=== PATIENT | female | born 1995 | race Caucasian/White ===

== ENCOUNTER 2023-06-12 10:18 | Emergency (ER) | payer SELFPAY ==
[2023-06-12 10:31] VITALS: BP 122/67; PULSE 72; RESP 16; TEMP 36.7; O2SAT 100
--- NOTE | 2023-06-12 10:51 | ED.SKABFB ---
HPI - Skin/Abscess/Foreign Bdy General Chief complaint: Skin/Abscess/Foreign Body Stated complaint: Rash Time Seen by Provider: 06/12/23 10:51 Source: patient Mode of arrival: ambulatory Limitations: no limitations History of Present Illness HPI narrative: 27-year-old female presents with complaint of itchy bug bites for 4-5 days. 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 Started to left upper arm now has them to right-sided back, lower abdomen, neck. States wakes up with new bites daily. Has not tried any [id number] medications to treat symptoms. All systems reviewed and negative except as noted above. Related Data Allergies Allergy/AdvReac Type Severity Reaction Status Date / Time No Known Allergies Allergy Verified 06/12/23 10:41 Review of Systems Review of Systems: CONSTITUTIONAL: Denies fever, chills, or sweats. EYES: Denies visual changes, redness, or discharge. ENT: Denies rhinorrhea, congestion, sore throat, or otalgia. CARDIOVASCULAR: Denies chest pain, palpitations, or edema. RESPIRATORY: Denies cough or dyspnea. GASTROINTESTINAL: Denies abdominal pain, nausea, vomiting, or diarrhea. GENITOURINARY: Denies dysuria or hematuria. SKIN: Reports itchy bug bites. MUSCULOSKELETAL: Denies back pain, joint pain, or myalgia. NEUROLOGIC: Denies headache, numbness, or weakness. PSYCHIATRIC: Denies anxiety or depression. All other systems reviewed are negative, except as documented in HPI. PMFSH Comments At time of signature, agree with nursing past medical, surgical, social and family history. There is no relevant family history pertinent to the presenting complaint. Exam Narrative: GENERAL: This is a well-nourished, well-developed patient, in no apparent distress. HEAD: normocephalic, atraumatic. EYES: PERRL. Sclera clear/white. Vision is grossly intact. EARS: External ears normal NOSE: External nose normal NECK: Neck supple, non-tender without lymphadenopathy, masses or thyromegaly. CARDIOVASCULAR: Regular rate and rhythm without murmurs, gallops, or rubs. RESPIRATORY: Clear to auscultation. Breath sounds equal bilaterally. No wheezes, rales, or rhonchi. SKIN: warm, Dry, intact , good texture and turgor. clusters of erythematous raised papules to left upper arm, right low back, left lower abdomen and to anterior neck. NEURO: awake, alert, and oriented to person, place and time. There were no obvious focal neurologic abnormalities. EXTREMITIES: No joint tenderness, effusion, or edema noted. Course Course Level of Care: Express Care Visit Vital Signs Vital signs: Vital Signs Temperature 36.7 C 06/12/23 10:31 Pulse Rate 72 06/12/23 10:31 Respiratory Rate 16 06/12/23 10:31 Blood Pressure 122/67 06/12/23 10:31 Pulse Oximetry 100 06/12/23 10:31 Oxygen Delivery Room Air 06/12/23 10:31 Temperature 36.7 C 06/12/23 10:31 Pulse Rate 72 06/12/23 10:31 Respiratory Rate 16 06/12/23 10:31 Blood Pressure 122/67 06/12/23 10:31 Pulse Oximetry 100 06/12/23 10:31 Oxygen Delivery Room Air 06/12/23 10:31 Reviewed MDM - Skin/Abscess/Foreign Bdy MDM Narrative Medical decision making narrative: insect bites concerning for bedbugs. Recommend patient talk with qual research manager to exterminate hotel room. Patient prescribed medications to treat her symptoms. Patient is aware of diagnosis, understands and agrees to treatment plan. Anticipatory guidance given. Patient agrees to follow-up as directed and is aware of reasons to seek care at the emergency department. Portions of this record may have been created with voice recognition software Differential Diagnosis Differential diagnosis: Likely insect bites Discharge Plan Discharge Clinical Impression: Infestation by bed bug Patient Disposition: Home, Self-Care Condition: Stable Instructions: Bed Bugs (ED) Additional Instructions: Take medications as prescribed. Avoid scrat
== END 2023-06-12 11:08 | disposition home or self-care (01) ==
PROVIDERS: Emergency Provider Nurse Practitioner Family
DX: Z20.7 Contact with and (suspected) exposure to pediculosis, acariasis and other infestations (principal)
CPT/HCPCS: 99203; G0463